=== PATIENT | male | born 1985 | race Caucasian/White ===

== ENCOUNTER → 2024-02-15 07:56 | Outpatient (CLI) | payer OTHER, SELFPAY ==
--- NOTE | 2024-02-15 08:00 | DI.US.S_ITS ---
PROCEDURE: US INJECT OR DRAIN JOINT INDICATIONS: Pain in right shoulder TECHNIQUE: The indications, alternatives, benefits, risks, and complications of the procedure were explained to the patient. Written informed consent was obtained and placed in the chart. The patient was placed in an appropriate position on the ultrasound table, and a site was chosen for percutaneous access under ultrasound guidance. Local anesthetic was administered using a 1% lidocaine solution. A hypodermic or spinal needle was then used to access the symptomatic joint. Intra-articular location of the needle tip was confirmed by real time ultrasound imaging, followed by steroid administration. The needle was then withdrawn, and a bandage applied to the puncture site. COMPARISON: None. FINDINGS: Site injected: Right biceps tendon sheath. Medications injected: 0.5 mL of 40 mg/mL Kenalog and 1 cc 0.5% Ropivacaine mixture. Complications: Patient was very nervous prior to the procedure. After the procedure was finished the patient experienced a vasovagal response. Blood pressure, heart rate, and pulse oximetry were acquired. Blood pressure 121/79. Heart rate 75 bpm. Pulse ox 98% room air. The patient recovered in approximately 5 minutes. I personally evaluated the patient. IMPRESSION: Successful ultrasound guided administration of steroid and anaesthetic solution into the right biceps tendon sheath. Patient experienced a short episode of vasovagal response postprocedural. Dictated by: Brandon Castañeda M.D. on 02/15/2024 at 10:05 Approved by: Brandon Castañeda M.D. on 02/15/2024 at 10:09
== END ==
LOC: US 07:59
PROVIDERS: Referring Provider Orthopaedic Surgery; Visit Provider Orthopaedic Surgery
DX: M25.511 Pain in right shoulder (principal)
CPT/HCPCS: 20611

== ENCOUNTER → 2024-02-19 10:06 | Outpatient (CLI) | payer OTHER, SELFPAY ==
--- NOTE | 2024-02-19 10:07 | DI.RAD.S_ITS ---
PROCEDURE: FL SHOULDER INJECTION MR/CT LT INDICATIONS: Pain in left shoulder COMPARISON: [facility], INJECT OR DRAIN JOINT, 02/15/2024, 8:18. TECHNIQUE: The indications, alternatives, benefits, risks, and complications of the procedure were explained to the patient. Written informed consent was obtained and placed in the chart. The shoulder was examined fluoroscopically and a site for needle placement chosen for entry into the glenohumeral joint from an anterior approach. The skin was prepped and draped in a sterile fashion, and 1% lidocaine infiltrated from skin down to joint capsule. A spinal needle was inserted into the glenohumeral joint, and a small amount of iodinated contrast media injected to confirm intra-articular placement of the needle tip. This was followed by approximately 12 mL dilute solution of a gadolinium containing MR contrast agent. The needle was removed and a dressing was applied. The patient was given postprocedural instructions and sent to the MR suite for MR imaging. FINDINGS: A single fluoroscopic spot image demonstrates intra-articular location of injected iodinated contrast. IMPRESSION: Successful fluoroscopically guided administration of dilute Gadolinium solution into the shoulder joint for MR arthrogram. Dictated by: Samantha Dumont M.D. on 02/19/2024 at 12:48 Approved by: Samantha Dumont M.D. on 02/19/2024 at 12:49
--- NOTE | 2024-02-19 11:17 | DI.MRI.S_ITS ---
PROCEDURE: MR SHOULDER LT W CON INDICATIONS: Pain in left shoulder TECHNIQUE: After the administration of 12 mL of dilute intra-articular Gadolinium contrast, oblique coronal T1 and T2 spin echo with fat saturation, oblique sagittal T1 spin echo with and without fat saturation, oblique sagittal T2 fast spin echo with fat saturation, axial T1 spin echo with fat saturation through the shoulder. COMPARISON: None. FINDINGS: Image quality: Excellent. Rotator cuff: Low-grade articular and bursal surface partial thickness tear involving distal supraspinatus at its insertion on the humeral head is seen extending to musculotendinous junction. Distal infraspinatus and subscapularis tendinosis is seen. No full-thickness rotator cuff tendon rupture. No significant rotator cuff muscle atrophy on sagittal images. Bones and bursae: No bone marrow contusions or fractures. Mild acromioclavicular joint osteoarthritic changes are seen with joint space narrowing and small downward osteophyte formation depressing the musculotendinous junction of supraspinatus. The acromion demonstrates conventional anatomy, without an os acromiale. Capsule and soft tissues: Subtle fraying of superior anterior labrum at 12 to 1 o'clock position with subtle contrast extension. The glenohumeral ligaments appear intact. The long head of the biceps tendon demonstrates normal location and morphology. The rotator interval appears normal, without fibrosis. The coracohumeral ligament is of normal thickness. No intra-articular bodies. IMPRESSION: 1. Low-grade articular and bursal surface partial thickness tear involving distal supraspinatus extending to musculotendinous junction. Distal infraspinatus and subscapularis tendinosis. No full-thickness rotator cuff tendon rupture. 2. Mild acromioclavicular joint osteoarthritis. No marrow edema. No fracture or dislocation. No gross intra-articular loose bodies. 3. There is suggestion of very subtle superior anterior labral tear at 12 to 1 o'clock position. Dictated by: Dalton Whitaker M.D. on 02/20/2024 at 9:47 Approved by: Dalton Whitaker M.D. on 02/20/2024 at 9:55
[2024-02-19] MEDS: SODIUM CHLORIDE 0.9 % 20 ML VIAL IV (11:28)
[2024-02-19] MEDS: LIDOCAINE 1% 20 ML INJ (11:28)
== END ==
PROVIDERS: Referring Provider Orthopaedic Surgery; Visit Provider Orthopaedic Surgery
DX: M75.112 Incomplete rotator cuff tear or rupture of left shoulder, not specified as traumatic (principal); M19.012 Primary osteoarthritis, left shoulder; M25.512 Pain in left shoulder
CPT/HCPCS: 23350; 73040; 73222; 77002; A9579